=== PATIENT | female | born 1945 | race African-American/Black ===

== ENCOUNTER 2024-06-18 03:40 | Emergency (ER) | payer OTHER ==
[~2024-06-18] VITALS: Ht 152.4 cm; Wt 71.7 kg
[2024-06-18 04:04] VITALS: BP 155/85; RESP 18; TEMP 97.8; O2SAT 95
[2024-06-18 04:13] VITALS: PULSE 67
[2024-06-18] MEDS ORDERED: MELO7.5T7 PO (06:53)
[2024-06-18] MEDS: KETOROLAC TROMETH 60MG/2ML VIAL IM ONE (06:56)
== END 2024-06-18 07:09 | disposition home or self-care (01) ==
LOC: ER 03:40
DX: M75.32 Calcific tendinitis of left shoulder (principal); I10 Essential (primary) hypertension
CPT/HCPCS: 73030; 96372; 99283; J1885